=== PATIENT | female | born 1975 | race Caucasian/White ===

== ENCOUNTER 2018-05-15 18:51 | Observation (INO) | payer BC ==
[2018-05-15] MEDS ORDERED: Aspirin EC TAB* 325 MG PO ONE (19:19)
--- NOTE | 2018-05-15 19:21 | ED ---
HPI Chest Pain - HPI Summary HPI Summary: Pt is a 43 y/o F presenting to the ED with a chief complaint of chest pain onset initially 05/07/18 after a bicycle ride. About an hour after, she had intermittent chest tightness and vomited from the pain. Upon resting, felt better. 05/13/18, she was shoveling, felt pain in her L flank, with tightness, shortness of breath, and stiffness in upper back and neck. She later vomited after taking a shower, then got the chills, which have been intermittent since. Yesterday she experienced decreased appetite, intermittent L flank pain, sob, cough, nausea, and fatigue. The pt denies arm pain, LE swelling or pain, or any GI changes. She currently feels tired and chest tightness, with deep breaths worsening the pain. Resting HR is higher than normal per her smart watch, little things such as picking up a laptop have increased her HR, and her BP has been higher. - History of Current Complaint Chief Complaint: EDChestPainROMI Time Seen by Provider: 05/15/18 19:00 Hx Obtained From: Patient Onset/Duration: Started Days Ago, Still Present Timing: Intermittent Initial Severity: Mild Current Severity: Mild Pain Intensity: 3 Pain Scale Used: 0-10 Numeric Chest Pain Location: Left Anterior Chest Pain Radiates: Yes Chest Pain Radiates To:: Flank - left Character: Tightness Aggravating Factor(s): Exertion, Movement, Deep Breaths Alleviating Factor(s): Rest Associated Signs and Symptoms: Positive: Chest Pain, Shortness of Breath, Chills , Diaphoresis, Nausea, Vomiting, Other: - fatigue. Negative: Swelling, Calf Pain/Swelling, Edema - Allergy/Home Medications Allergies/Adverse Reactions: Allergies Allergy/AdvReac Type Severity Reaction Status Date / Time codeine Allergy Nausea And Verified 05/15/18 18:58 Vomiting hydrocodone Allergy Nausea And Verified 05/15/18 18:58 Vomiting oxycodone Allergy Nausea And Verified 05/15/18 18:58 Vomiting PMH/Surg Hx/FS Hx/Imm Hx Previously Healthy: Yes Endocrine/Hematology History: Denies: Hx Diabetes Cardiovascular History: Denies: Hx Hypertension - Surgical History Surgery Procedure, Year, and Place: Hysterectomy due to endometriosis Infectious Disease History: No Infectious Disease History: Denies: Traveled Outside the [place] in Last 30 Days - Family History Known Family History: Negative: Cardiac Disease - Social History Occupation: Employed Full-time Lives: With Family Hx Tobacco Use: No Smoking Status (MU): Never Smoked Tobacco Review of Systems Positive: Chills, Fatigue, Skin Diaphoresis Positive: Chest Pain Positive: Shortness Of Breath, Cough Positive: Vomiting, Nausea Positive: no symptoms reported Negative: Myalgia, Edema Neurological: Other - fatigue Positive: Weakness All Other Systems Reviewed And Are Negative: Yes Physical Exam - Summary Physical Exam Summary: Appearance: Well-appearing, Well-nourished, lying in bed comfortably Skin: Warm, dry, no obvious rash Eyes: sclera anicteric, no conjunctival pallor ENT: mucous membranes moist, pharynx appears normal Neck: Supple, nontender Respiratory: Clear to auscultation, no signs of respiratory distress Cardiovascular: Normal S1, S2. No murmurs. Normal distal pulses in tibial and radial bilaterally. Abdomen: Soft, nontender, normal active bowel sounds present Musculoskeletal: Normal, Strength/ROM Intact Neurological: A&Ox3, awake and alert, mentation is normal, speech is fluent and appropriate Psychiatric: affect is normal, does not appear anxious or depressed Triage Information Reviewed: Yes Vital Signs On Initial Exam: Initial Vitals Temp Pulse Resp BP Pulse Ox 96.9 F 89 17 135/96 98 05/15/18 18:54 05/15/18 18:54 05/15/18 18:54 05/15/18 18:54 05/15/18 18:54 Vital Signs Reviewed: Yes Diagnostics - Vital Signs Vital Signs Temp Pulse Resp BP Pulse Ox 05/15/18 18:54 96.9 F 89 17 135/96 98 - Laboratory Result Diagrams: 05/15/18 18:35 05/15/18 18:35 Lab Statement: Any lab studies that have been ordered have been reviewed, and results considered in the medical decision making process. - EKG 1904 Cardiac Rate: NL - 78bpm EKG Rhythm: Sinus Rhythm ST Segment: Normal Ectopy: None Chest Pain Course/Dx - Course Course Of Treatment: Pt is a 43 y/o F presenting to the ED with a chief complaint of chest pain onset initially 05/07/18 after a bicycle ride, with intermittent chest pain since then. Pt reports chest tightness, shortness of breath, stiffness in upper back and neck, pain in L flank, sob, cough, nausea, intermittent clamminess, intermittent chills, and fatigue. The pt denies arm pain, LE swelling or pain, or any GI changes. She currently feels tired and chest tightness, with deep breaths worsening the pain. Bloodwork obtained. An EKG reveals NSR at 78bpm. The pt will be admitted to [facility] to be seen by cardiology in the morning, and the pt is agreeable with this plan. - Chest Pain Differential Diagnosis/HQI/PQRI: Acute NC, ACS, Pulmonary Embolism - Diagnoses Provider Diagnoses: Unstable angina Discharge - Sign-Out/Discharge Documenting (check all that apply): Patient Departure - admit All imaging exams completed and their final reports reviewed: No - Discharge Plan Condition: Stable Disposition: ADMITTED TO [facility] - Billing Disposition and Condition Condition: STABLE Disposition: Admitted to [facility] - Attestation Statements Document Initiated by Jose: Yes Documenting Scribe: Tashia Mckeon Provider For Whom Jose is Documenting (Include Credential): Talat Garvin MD. Scribe Attestation: Tashia Gonsalez scribed for Talat Garvin MD. on 05/16/18 at 0227. Scribe Documentation Reviewed: Yes Provider Attestation: The documentation as recorded by the Tashia mitchell accurately reflects the service I personally performed and the decisions made by Talat jones MD. Status of Scribe Document: Viewed
[2018-05-15 19:36] LABS: ABS Basophils 0.1 10^3/ul (0-0.2); ABS Eosinophils 0.3 10^3/ul (0-0.6); ABS Lymphocytes 2.8 10^3/ul (1.0-4.8); ABS Monocytes 0.7 10^3/ul (0-0.8); ABS Neutrophils 2.9 10^3/ul (1.5-7.7); ABS Nucleated RBC 0 10^3/ul; Eosinophil % 4.1 %; Hematocrit 39 % (35-47); Hemoglobin 13.4 g/dl (12.0-16.0); Mean Corpuscular HGB Conc 34 g/dl (31-36); Mean Corpuscular Hemoglobin 30 pg (27-31); Mean Corpuscular Volume 89 fL (80-97); Nucleated Red Blood Cells % 0; Platelet Count 293 10^3/ul (150-450); Red Blood Count 4.43 10^6/ul (4.00-5.40); Red Cell Distribution Width 12 % (10.5-15); White Blood Count 6.8 10^3/ul (3.5-10.8)
[2018-05-15] MEDS ORDERED: Aspirin 81 mg CHEW TAB* 81 MG TAB.CHEW ONE (19:47)
[2018-05-15] MEDS ORDERED: Aspirin 81 mg CHEW TAB* 81 MG TAB.CHEW PO ONE (19:49)
[2018-05-15 19:54] LABS: Albumin 4.3 g/dL (3.2-5.2); Albumin/Globulin Ratio 1.4 (1-3); BUN/Creatinine Ratio 17.8 (8-20); Calcium 9.4 mg/dL (8.6-10.3); EGFR African American 82.3 (>60); Globulin 3.1 g/dL (2-4); Potassium 3.8 mmol/L (3.5-5.0); Total Bilirubin 0.4 mg/dL (0.2-1.0); Total Protein 7.4 g/dL (6.4-8.9)
[2018-05-15] MEDS ORDERED: Ondansetron INJ* 2 MG/ML VIAL IV PRN (20:32)
[2018-05-15 20:40] LABS: TSH (Thyroid Stimulating Horm) 2.33 mcIU/mL (0.34-5.60)
[2018-05-15 20:57] LABS: C Reactive Protein 1.1 mg/L (<8.01)
[2018-05-15 22:13] LABS: Erythrocyte Sed Rate 19 mm/Hr (0-14)
[2018-05-15] MEDS: Acetaminophen TAB* 325 MG PO PRN (22:39)
[2018-05-15] MEDS ORDERED: Venlafaxine EXT RELEASE CAP* 37.5 MG PO SCH (23:00)
--- NOTE | 2018-05-15 23:04 | HP ---
HISTORY AND PHYSICAL: DATE OF ADMISSION: 05/15/18. PRIMARY CARE PROVIDER: None. ATTENDING PHYSICIAN WHILE IN THE HOSPITAL: Dr. Reilly * (report dictated by Alesia Young NP) CHIEF COMPLAINT: Chest pain. HISTORY OF PRESENT ILLNESS: Ms. Villalba is a 43-year-old female patient who was previously healthy, who comes in to our emergency department today, stating that she on Monday last week was using her stationary bike and she developed chest discomfort and nausea towards the end of her ride. About an hour afterwards, it got more intense. She states that when she lied down and rested , things got better. She states that throughout the week though, she has noticed that her exercise tolerance has been getting worse. She notices that if she walks a short distance, she will get shortness of breath, she will feel chest pressure, she will feel fatigued. She noticed that the symptoms and the frequency and intensity had been increasing throughout the week. She tried shoveling snow on Monday and she noticed that she got very winded, very short of breath. She had to rest. She got nauseated. She had sweats after this, was having chest discomfort. She states that whenever she stops doing an activity, she feels better. She was concerned. Her finally convinced her to come in to the ER today. She denied any recent fevers or chills. Denied having any recent URI symptoms. Denied having any calf pain, leg pain or swelling. She denied having any abdominal pain or any nausea or vomiting. She was concerned again because of the fact that she continued to have this intermittent chest discomfort, came and saw the ER physician. The ER was concerned because of her story and they had asked us to evaluate for admission. PAST MEDICAL HISTORY: Denied. PAST SURGICAL HISTORY: She had knee arthroscopy, shoulder arthroscopy, wrist surgery, and hysterectomy. MEDICATIONS: Home meds were denied. ALLERGIES TO MEDICATIONS: Include CODEINE, HYDROCODONE, OXYCODONE. FAMILY HISTORY: Her mother is healthy. Father had a history of CKD and gout. Her father had an ND in his 50s. SOCIAL HISTORY: She occasionally drinks alcohol. She works in IT at [employer]. Surrogate decision maker is her . She does not smoke. She is a lifelong nonsmoker. REVIEW OF SYSTEMS: There is no documented fever. She denied having any significant weight change. There is no double vision. She denied having any ear discharge. She denies having any rhinorrhea. There was no sore throat. There was no thyroid enlargement. She denied having any chest pain. There was no orthopnea. There was no nocturnal dyspnea. There was no abdominal pain, no nausea, no vomiting. No dysuria, no frequency. No seizure, no loss of consciousness. No pruritus and no skin ulcerations. Review of 14 systems was completed, all others negative. PHYSICAL EXAMINATION GENERAL: At this time, Ms. Villalba is a 43-year-old female patient. She is well nourished, well developed, sitting in the ED stretcher. She does not appear to be in any acute distress. VITAL SIGNS: Blood pressure 119/87, pulse is 87, respirations 20, O2 sat 95%, temperature 96.9. HEENT: Head: Atraumatic and normocephalic. Eyes: EOMs intact. Sclerae anicteric and not pale. Throat: Oral mucosa appears to be moist. No oropharyngeal erythema. NECK: Supple. LUNGS: Clear to auscultation bilaterally. No wheezes, rales or rhonchi. HEART: Sounds S1, S2. She had a regular rate and rhythm. There were no murmurs, rubs or gallops. ABDOMEN: Soft, flat, nontender. Bowel sounds were present. EXTREMITIES: Pulses were 2+ throughout. She had no peripheral edema. NEUROLOGIC: She is awake, alert, and oriented x3. No gross focal deficits. SKIN: Intact. DIAGNOSTIC STUDIES/LAB DATA: WBC of 6.8, RBC of 4.43, hemoglobin of 13.4, hematocrit of 39, platelet count of 293,000. D-dimer less than 200. Sodium 138 , potassium 3.8, chloride 104, bicarb 27, BUN 16, creatinine 0.90, glucose 98, calcium 9.4. Total bili is 0.4, AST 16, ALT 15, alk phos 52. Troponin 0. CRP of 1.1, TSH of 2.3. EKG shows a normal sinus rhythm, rate of 78. No ST elevations or T-wave inversions were noted. Chest x-ray was obtained today. When I reviewed it, I did not appreciate any acute infiltrates or pulmonary edema. She had a normal cardiac silhouette. Old medical records were reviewed. ASSESSMENT AND PLAN: Ms. Villalba is a 43-year-old female patient, coming into the ED today with complaints of chest pain. She will be admitted under observation status for: 1. Chest pain. I am concerned given the story that this could represent acute coronary syndrome. I am going to cycle her troponins, place her on telemetry and started her on aspirin. I will check a lipid panel, A1c. In addition to this, I will get a stress test in the morning, a nuclear stress test, and I will check an echo as well and I will continue to follow. 2. DVT prophylaxis. I have ordered SCDs. 3. Code status is full code. 4. Fluids, electrolytes, and nutrition. Heart-healthy diet, n.p.o. after midnight. TIME SPENT: Time spent on the admission was 60 minutes, greater than half of the time was spent [id number] with the patient obtaining my history and physical, other half of the time was spent going over the plan of care with the patient and implementing plan of care. I did discuss the plan of care with my attending and she is in agreement. ALESIA YOUNG, KAYLIE [id number]/CPS #: [id number] JUAN
[2018-05-16] MEDS: Acetaminophen TAB* 325 MG PO PRN ×2 (03:12→12:20)
[2018-05-16 06:34] LABS: INR 0.96 (0.77-1.02)
[2018-05-16 06:42] LABS: BUN/Creatinine Ratio 17.9 (8-20); Calcium 9.2 mg/dL (8.6-10.3); EGFR African American 89.1 (>60); EGFR Non-African American 73.7 (>60); HDL Cholesterol 46.1 mg/dL; Potassium 3.9 mmol/L (3.5-5.0)
[2018-05-16 07:13] LABS: ABS Basophils 0.1 10^3/ul (0-0.2); ABS Eosinophils 0.4 10^3/ul (0-0.6); ABS Lymphocytes 2.3 10^3/ul (1.0-4.8); ABS Monocytes 0.7 10^3/ul (0-0.8); ABS Neutrophils 2.5 10^3/ul (1.5-7.7); ABS Nucleated RBC 0 10^3/ul; Eosinophil % 6.3 %; Hematocrit 39 % (35-47); Hemoglobin 13.6 g/dl (12.0-16.0); Lymphocyte % 38.2 %; Mean Corpuscular HGB Conc 35 g/dl (31-36); Mean Corpuscular Hemoglobin 31 pg (27-31); Mean Corpuscular Volume 89 fL (80-97); Mean Platelet Volume 7.4 fL (7.4-10.4); Nucleated Red Blood Cells % 0.2; Platelet Count 291 10^3/ul (150-450); Red Blood Count 4.43 10^6/ul (4.00-5.40); Red Cell Distribution Width 13 % (10.5-15); White Blood Count 5.9 10^3/ul (3.5-10.8)
[2018-05-16] MEDS ORDERED: Aspirin EC TAB* 81 MG TAB.EC PO SCH (09:00)
[2018-05-16 11:47] VITALS: BP 111/75
--- NOTE | 2018-05-16 13:22 | ECHO ---
Patient: JUANJOSE ROA [facility] Rec#: [id number] : 1975 Date: 05/16/2018 Age: 43y Height: 157 cm / 61.8 in Weight: 72.1 kg / 158.9 lbs Sex: F BSA: 1.7 Room#: [facility] Admit Date#: 05/15/2018 Type: Inpatient Referring: Jeff Gamble NP Reading: Anny Andrade MD Park Warden: Marlin Johnson RN RDCS Transthoracic Echocardiogram Indication: Shortness of breath, chest pain BP: 106/69 HR: 75 Rhythm: NSR Findings History: No significant past medical history Technical Comments: The study quality is fair. Completed at 1220. Left Ventricle: The left ventricular chamber size is normal. Septal wall hypertrophy is observed. 1.1cm. Global left ventricular wall motion and contractility are within normal limits. There is normal left ventricular systolic function. The estimated ejection fraction is 55-60%. Normal left ventricular diastolic filling is observed. Left Atrium: The left atrial chamber size is normal. Right Ventricle: The right ventricular chamber size and systolic function are within normal limits. Right Atrium: The right atrial cavity size is normal. Aortic Valve: The aortic valve is trileaflet. Systolic excursion of the aortic valve is normal. There is no evidence of aortic stenosis. Mitral Valve: The mitral valve leaflets are mildly thickened. Mitral valve leaflet mobility appears normal. There is a trace of mitral regurgitation. There is no evidence of mitral stenosis. Tricuspid Valve: The tricuspid valve leaflets are normal. There is trace tricuspid regurgitation. Unable to estimate the right ventricular systolic pressure. There is no tricuspid stenosis. Pulmonic Valve: The pulmonic valve appears normal. There is a trace pulmonic regurgitation. There is no pulmonic stenosis. Pericardium: There is no significant pericardial effusion. Aorta: There is no dilatation of the ascending aorta. There is no dilatation of the aortic arch. There is no dilation of the aortic root. Pulmonary Artery: The main pulmonary artery appears normal. Venous: The inferior vena cava appears normal in size. There is a greater than 50% respiratory change in the inferior vena cava dimension. Conclusions The left ventricular chamber size is normal. Global left ventricular wall motion and contractility are within normal limits. The estimated ejection fraction is 55-60%. Normal left ventricular diastolic filling is observed. The right ventricular chamber size and systolic function are within normal limits. The mitral valve leaflets are mildly sclerosed with trace MR. There is trace tricuspid regurgitation. No prior echo to compare. Measurements Name Value Normal Range RVIDd (AP) 2D 2.6 cm (0.9 - 2.6) RAd ISD 4CH 4 cm (3.4 - 4.9) RA (A4C)W 2.8 cm (2.9 - 4.6) IVSd (2D) 1.1 cm (0.6 - 1) LVPWd (2D) 1 cm (0.6 - 1) LVIDd (2D) 3.8 cm (3.6 - 5.4) LVIDs (2D) 2.3 cm - LV FS (2D) 39 % (25 - 45) Aortic Annulus 1.8 cm (1.4 - 2.6) Ao root diameter (2D) 3.3 cm (2.1 - 3.5) Ascending Ao 2.9 cm (2.1 - 3.4) Aortic arch 2.5 cm (1.8 - 3.4) LA dimension (AP) 2D 3 cm (2.3 - 3.8) LAd ISD 4CH 3.9 cm (2.9 - 5.3) LA ISD 4CH W 2.9 cm (2.5 - 4.5) Name Value Normal Range LA ESV BP (A/L) index 11.8 ml/m2 - Name Value Normal Range MV E-wave Vmax 0.66 m/sec - MV deceleration time 180 msec - MV A-wave Vmax 0.61 m/sec - MV E:A ratio 1.1 ratio - LV septal e' Vmax 0.07 m/sec - LV lateral e' Vmax 0.11 m/sec - LV E:e' septal ratio 9.4 ratio - LV E:e' lateral ratio 6 ratio - Name Value Normal Range AV Vmax 1.2 m/sec - AV VTI 22.8 cm - AV peak gradient 6 mmHg - AV mean gradient 3 mmHg - LVOT Vmax 0.96 m/sec - LVOT VTI 18.7 cm - LVOT peak gradient 4 mmHg - LVOT mean gradient 2 mmHg - DANIKA Vmax 0.75 m/sec - Name Value Normal Range IVC diameter 1.5 cm - Name Value Normal Range PV Vmax 0.75 m/sec -
--- NOTE | 2018-05-16 20:14 | DS ---
CC: Dr. Laura Muñoz * DISCHARGE SUMMARY: DATE OF ADMISSION: 05/15/18 DATE OF DISCHARGE: 05/16/18 PRIMARY CARE PROVIDER: Dr. Laura Muñoz. ATTENDING PHYSICIAN: Dr. Sherri Da Silva * (dictated by Eugenia Garrett NP). PRIMARY DIAGNOSIS: Chest pain, possible reactive airway disease. STUDIES WHILE IN THE HOSPITAL: 1. EKG on 05/15/18 showed normal sinus rhythm with a rate of 78, QTc 433, no ischemic changes. 2. Chest x-ray on 05/15/18 reads as no active cardiopulmonary disease. 3. Transthoracic echocardiogram on 05/16/18 reads as the left ventricular chamber size is normal. Global left ventricular wall motion and contractility are within normal limits. The estimated ejection fraction is 55% to 60%. Normal left ventricular diastolic filling is observed. The right ventricular chamber size and systolic function are within normal limits. The mitral valve leaflets are mildly sclerosed with trace mitral regurgitation. There is trace tricuspid regurgitation. No prior echo to compare. 4. Nuclear cardiac stress test on 05/16/18 reads as no evidence of fixed or reversible perfusion defect is identified. Normal ejection fraction and wall motion. Low risk. HISTORY OF PRESENT ILLNESS AND HOSPITAL COURSE: Ms. Villalba is a 43-year-old female with no significant past medical history who presented to the emergency room on 05/15/18 with complaints of chest pain. Please see the history and physical by Jeff Gamble NP, for a complete summary of the events leading up to the hospitalization. In short, the patient reports that starting last week, she had intermittent chest pain. The first time she was riding a stationary bike and developed chest discomfort and nausea towards the end of the ride. The pain resolved with rest. She noted that over the last week, her exercise tolerance was worsening and she noted shortness of breath and chest pressure with minimal exertion. On Monday, she was shoveling snow and became very short of breath and nauseous, afterwards she developed chest pain. She presented to the emergency room where she had unremarkable labs including a D-dimer of less than 200 and a negative a troponin. She had an EKG as noted above with no concerns for any acute changes. Although, she had no significant risk factors, she was admitted by the hospitalist service because of her convincing history. The patient had an uneventful night. She had no further chest pain or shortness of breath during this admission. Her vital signs were stable. She had 2 additional troponins, which were 0.00. She did have a lipid panel which showed triglycerides of 186, total chloride of 225, LDL of 142, and HDL of 46. She had a hemoglobin A1c of 5.2. She had a transthoracic echocardiogram as noted above, which was unremarkable. She also had a nuclear stress test this morning which indicated that she was at low risk. I spoke with the patient and her and it sounds as though all of these episodes of chest pain have been accompanied with shortness of breath. The patient reports the chest pain is towards the top of her sternum and feels tight. Because of these symptoms and new echo cardiac findings, I am concerned that she may have some degree of reactive airway disease. All of her episodes of chest pain have been with exertion and have been relieved with rest. She does report a history of mild seasonal allergies. She denies any coughing at night. At this point, I am not concerned for any GI etiology. I have spoken at length with the patient and her about the findings and possible reasons for chest pain. She is asymptomatic on my exam and lungs are clear throughout without any wheezing. Her chest pain is non-reproducible. She is agreeable to discharge with plans for followup with a new primary care provider. Ms. Villalba is stable for discharge today. Vital signs are as follows: Temp 98.3, heart rate 79, respiratory rate 20, oxygen saturation 96% on room air, blood pressure 111/75. DISCHARGE MEDICATIONS: New medications: Albuterol MDI 1 to 2 puffs q.4 hours p.r.n. shortness of breath. Continued medications: Venlafaxine 37.5 mg p.o. daily. DISCHARGE PLAN: Ms. Villalba will be discharged home. Activity will be as tolerated. Diet will be regular as tolerated. She can continue her venlafaxine. Additionally, I have prescribed her an albuterol inhaler that I have instructed her to use if she becomes short of breath because I do believe her chest pain may be of pulmonary etiology. Although, she did have a high LDL , according to the ASCVD risk algorithm, the patient's 10-year risk of cardiovascular event is 0.9% and no statin is recommended at this point. I have advised her to follow up with the PCP and she can discuss her symptoms with the PCP at that time, although I think that she may benefit from pulmonary function testing to determine if there is any degree of asthma or reactive airway disease. She does not currently have a primary care provider, but is in the process of establishing with a PCP in the area. I have advised her to return to the emergency room or nearest hospital for any worsening symptoms, shortness of breath, lightheadedness, dizziness, chest discomfort, high fevers, chills, night sweats, loss of consciousness, or any other worrisome signs or symptoms. This is a summarized report of a complex medical history and hospital stay. For further details, please see the entire medical record. TIME SPENT: Approximately 35 minutes was spent on this discharge. EUGENIA GARRETT NP [id number]/CPS #: [id number] JUAN
== END 2018-05-16 15:00 | disposition home or self-care (01) ==
LOC: ED 18:51 → MEDTELE 20:30
PROVIDERS: ADMIT Internal Medicine; ATTEND Internal Medicine
DX: R07.9 Chest pain, unspecified (principal); R06.02 Shortness of breath; R53.83 Other fatigue; R11.2 Nausea with vomiting, unspecified; R53.1 Weakness; R10.84 Generalized abdominal pain
CPT/HCPCS: 36415; 71046; 78452; 80048; 80053; 80061; 83036; 83880; 84443; 84484; 85025; 85379; 85610; 85652; 86140; 93005; 93017; 93306; 96374; 99283; A9270-GY; A9502; G0378